=== PATIENT | female | born 2000 | race Two or more races ===

== ENCOUNTER 2023-03-31 22:00 | Emergency (ER) | payer OTHER ==
[~2023-03-31] VITALS: Ht 154.9 cm; Wt 69.4 kg
[2023-03-31 23:33] LABS: HEMATOCRIT 32.9 % (36.0-45.00); MEAN CELL VOLUME 84.6 fL (80.00-100.00); MEAN CORPUSCULAR HEMOGLOBIN 28.2 pg (27.00-32.0); MEAN CORPUSCULAR HGB CONC 33.3 g/dl (32.0-36.0); PLATELET COUNT 249 K/uL (150-450); RED BLOOD COUNT 3.89 M/uL (4.00-6.00); RED CELL DISTRIBUTION WIDTH 14.3 % (11.5-14.5)
[2023-04-01 04:31] LABS: PH,URINE 6.5 (5.0-8.0); URINE APPEARANCE Clear; URINE BILIRRUBIN Negative (NEGATIVE); URINE BLOOD Large; URINE COLOR Yellow; URINE GLUCOSE Negative (NEGATIVE); URINE LEUKOCYTE Trace; URINE NITRATE Negative; URINE PROTEIN Negative (NEGATIVE)
[2023-04-01 04:35] LABS: URINE BACTERIA 217.9 uL (0.0-1933); URINE EPITHELIAL CELLS 3.7 uL (0.0-38.8); URINE RBC 918.3 uL (0.0-20.8); URINE WBC 14.5 uL (0.0-23.2)
== END 2023-04-01 05:01 ==
LOC: ER 22:01
PROVIDERS: Emergency Medicine; General Practice
DX: O20.8 Other hemorrhage in early pregnancy (principal)

== ENCOUNTER 2024-02-08 20:21 | Emergency (ER) | payer OTHER ==
[~2024-02-08] VITALS: Ht 160 cm; Wt 74.4 kg
[2024-02-08 20:31] VITALS: BP 129/85; O2SAT 100
[2024-02-08] MEDS ORDERED: PRENA1 TRUE CO1 EACH PO (20:32)
[2024-02-08 21:19] LABS: HEMATOCRIT 35.6 % (36.0-45.00); MEAN CELL VOLUME 86.7 fL (80.00-100.00); MEAN CORPUSCULAR HEMOGLOBIN 29.3 pg (27.00-32.0); MEAN CORPUSCULAR HGB CONC 33.8 g/dl (32.0-36.0); PLATELET COUNT 255 K/uL (150-450); RED CELL DISTRIBUTION WIDTH 13.8 % (11.5-14.5)
[2024-02-08 23:19] LABS: PH,URINE 5.5 (5.0-8.0); URINE APPEARANCE Clear; URINE BILIRRUBIN Negative (NEGATIVE); URINE BLOOD Trace; URINE COLOR Yellow; URINE GLUCOSE Negative (NEGATIVE); URINE KETONE Negative (NEGATIVE); URINE LEUKOCYTE Negative; URINE NITRATE Negative; URINE PROTEIN Negative (NEGATIVE); URINE UROBILINOGEN 0.2 E.U./dl
[2024-02-08 23:23] LABS: URINE BACTERIA 25.1 uL (0.0-1933); URINE EPITHELIAL CELLS 6.6 uL (0.0-38.8); URINE RBC 4.1 uL (0.0-20.8); URINE WBC 11.4 uL (0.0-23.2)
== END 2024-02-08 22:27 | disposition home or self-care (01) ==
LOC: ER 20:23
PROVIDERS: General Practice
DX: N93.9 Abnormal uterine and vaginal bleeding, unspecified (principal); Z88.8 Allergy status to other drugs, medicaments and biological substances

== ENCOUNTER 2024-04-19 11:10 | Outpatient (CLI) | payer OTHER ==
[~2024-04-19 11:10] MED LIST: PRENA1 TRUE CO1 EACH PO
== END 2024-04-19 11:14 | disposition home or self-care (01) ==
LOC: PRENATAL 11:10
PROVIDERS: ATTEND Obstetrics & Gynecology Maternal & Fetal Medicine
DX: Z76.1 Encounter for health supervision and care of foundling (principal)

== ENCOUNTER 2024-06-16 09:31 | Outpatient (CLI) | payer OTHER | END 2024-06-16 09:42 | disposition home or self-care (01) | LOC: SONOGRAMA 09:31 | PROVIDERS: ATTEND Obstetrics & Gynecology Maternal & Fetal Medicine | DX: O26.20 Pregnancy care for patient with recurrent pregnancy loss, unspecified trimester (principal) ==

== ENCOUNTER 2024-09-01 07:00 | Outpatient (CLI) | payer OTHER ==
[~2024-09-01] VITALS: Ht 160 cm; Wt 76.2 kg
[2024-09-01 10:30] LABS: BASO % 0.6 % (0.1-1.2); EOS # 0.02 (0.04-0.54); EOS % 0.3 % (0.7-7.0); HEMATOCRIT 36.5 % (34.1-44.9); HEMOGLOBIN 12.2 g/dL (11.2-15.7); LYMPH # 2.33 (1.18-3.74); LYMPH % 32.3 % (19.3-53.1); MONO # 0.45 (0.24-0.82); MONO % 6.2 % (4.7-12.5); NEUT # 4.36 (1.56-6.13); NEUT % 60.5 % (34.0-71.1); PLATELET COUNT 260 K/uL (163-369); RED BLOOD COUNT 4.21 M/uL (3.93-5.22); RED CELL DISTRIBUTION WIDTH 13.6 % (11.6-14.4)
[2024-09-01 10:31] LABS: PH,URINE 5.5 (5.0-8.0); URINE APPEARANCE Clear; URINE BILIRRUBIN Negative (NEGATIVE); URINE BLOOD Negative; URINE COLOR Yellow; URINE GLUCOSE Negative (NEGATIVE); URINE KETONE Trace (NEGATIVE); URINE LEUKOCYTE Moderate; URINE NITRATE Negative; URINE PROTEIN Negative (NEGATIVE); URINE UROBILINOGEN 0.2 E.U./dl
[2024-09-01 10:35] LABS: URINE EPITHELIAL CELLS 31.9 uL (0.0-38.8); URINE RBC 6.7 uL (0.0-20.8); URINE WBC 95.6 uL (0.0-23.2)
[2024-09-01 10:39] VITALS: BP 113/75
[2024-09-01 11:02] LABS: PARTIAL THROMBOPLASTIN TIME 26.6 SECONDS (22.0-34.0); PROTHROMBIN TIME 10.9 SECONDS (9.0-11.5)
[2024-09-01 11:14] LABS: URINE CAST 1.03 uL (0.0-1.40)
[2024-09-01 11:35] LABS: BILIRUBIN TOTAL 0.53 mg/dL (0.3-1.2); CALCIUM 9.5 mg/dL (8.5-10.1); CREATININE SERUM 0.62 mg/dL (0.55-1.02); GFR 117.28; GLOBULINA 3.7 G/DL (2.4-3.5); POTASSIUM 4.54 mEq/L (3.5-5.1); TOTAL PROTEIN 7.7 gm/dL (6.4-8.2)
== END 2024-09-01 07:15 | disposition home or self-care (01) ==
LOC: RAD 07:00 → ADM 08:30 → EDSTATUS 09-06 08:30 → CIR.AMB 09-06 08:30
PROVIDERS: ATTEND Student in an Organized Health Care Education/Training Program
DX: N93.8 Other specified abnormal uterine and vaginal bleeding (principal)